=== PATIENT | male | born 1965 | race Hispanic/Latino ===

== ENCOUNTER 2017-12-29 04:41 | Emergency (ER) | payer OTHER ==
--- NOTE | 2017-12-29 05:19 | ED PDOC ---
HPI: Headache Time Seen by Provider: 12/29/17 05:10 Chief Complaint (Nursing): Headache Chief Complaint (Provider): headache, dizziness History Per: Patient History/Exam Limitations: no limitations Onset/Duration Of Symptoms: Days (4) Current Symptoms Are (Timing): Still Present Pain Scale Rating Of: 5 Associated Symptoms: Nausea. denies: Photophobia, Blurred Vision, Vomiting, Extremity Weakness Additional Complaint(s): 51 y/o male presents with intermittent headache, dizziness x 4 days. Associated nausea. Patient describes dizziness as "room spinning", worse with movement of head. Patient states he had similar symptoms a few years ago and was prescribed medication for dizziness and symptoms went away and have not come back until now. Denies fever, neck pain, extremity numbness/weakness, vision changes, chest pain, shortness of breath, palpitations, alcohol/drug use. Past Medical History Reviewed: Historical Data, Nursing Documentation, Vital Signs - Medical History PMH: No Chronic Diseases - Surgical History Surgical History: No Surg Hx - Family History Family History: States: No Known Family Hx - Living Arrangements Living Arrangements: Alone - Home Medications Home Medications: Ambulatory Orders Medication Instructions Recorded Meclizine [Meclizine*] 25 mg PO TID PRN #21 tab 12/29/17 Naproxen [Naprosyn] 500 mg PO Q12 PRN #20 tablet 12/29/17 - Allergies Allergies/Adverse Reactions: Allergies Allergy/AdvReac Type Severity Reaction Status Date / Time No Known Allergies Allergy Verified 12/29/17 05:18 Review of Systems ROS Statement: Except As Marked, All Systems Reviewed And Found Negative Neurological: Positive for: Headache, Dizziness Physical Exam - Reviewed Nursing Documentation Reviewed: Yes Vital Signs Reviewed: Yes - Physical Exam Appears: Positive for: Well, Non-toxic, No Acute Distress Head Exam: Positive for: ATRAUMATIC, NORMAL INSPECTION, NORMOCEPHALIC Skin: Positive for: Normal Color Eye Exam: Positive for: Normal appearance, EOMI, PERRL ENT: Positive for: Normal ENT Inspection Cardiovascular/Chest: Positive for: Regular Rate, Rhythm Respiratory: Positive for: Normal Breath Sounds Gastrointestinal/Abdominal: Positive for: Normal Exam Back: Positive for: Normal Inspection Extremity: Positive for: Normal ROM Neurologic/Psych: Positive for: Alert, Oriented. Negative for: Motor/Sensory Deficits - ECG ECG: Positive for: Viewed By Me (reviewed by ED attending) ECG Rhythm: Positive for: Sinus Rhythm - Progress ED Course And Treament: EKG, accucheck Toradol IM, meclizine PO Disposition - Clinical Impression Clinical Impression: Headache, Dizziness Counseled Patient/Family Regarding: Studies Performed, Diagnosis, Need For Followup, Rx Given - Disposition Referrals: [facility] [Outside] James Tapia MD [Medical Doctor] - Disposition: Routine/Home Disposition Time: 06:00 Condition: IMPROVED Prescriptions: Meclizine [Meclizine*] 25 mg PO TID PRN #21 tab PRN Reason: Dizziness Naproxen [Naprosyn] 500 mg PO Q12 PRN #20 tablet PRN Reason: Pain, Moderate (4-7) Instructions: Vertigo (a Type of Dizziness), Headache, Adult (DC) Forms: [employer] (Gabonese)
[2017-12-29 05:53] VITALS: TEMP 98.1; BMI 26.3
[2017-12-29 06:01] VITALS: RESP 18; O2SAT 99
[2017-12-29 06:55] VITALS: BP 134/72; PULSE 68
== END 2017-12-29 06:55 | disposition home or self-care (01) ==
LOC: H.ER 04:41
DX: R51 Headache (principal); R42 Dizziness and giddiness
CPT/HCPCS: 82948; 96372; 99285; J1885